=== PATIENT | male | born 1955 ===

== ENCOUNTER 2016-06-14 09:30 | Outpatient (RCR) | payer BC | END 2016-06-18 12:00 | disposition home or self-care (01) | LOC: CR 09:30 | PROVIDERS: ATTEND Family Medicine | DX: I21.19 ST elevation (STEMI) myocardial infarction involving other coronary artery of inferior wall (principal); Z95.1 Presence of aortocoronary bypass graft; Z95.5 Presence of coronary angioplasty implant and graft | CPT/HCPCS: 93798 ==